=== PATIENT | male | born 1955 | race Two or more races ===

== ENCOUNTER 2020-05-08 19:18 | Emergency (ER) | payer MEDICARE, OTHER ==
[2020-05-08] MEDS ORDERED: Sodium Chloride 0.9% 10 ML Syringe FLUSH PRN ×2 (19:24→21:32)
[2020-05-08] MEDS ORDERED: Sodium Chloride 0.9% 2.5 ML Syringe FLUSH PRN ×2 (19:24→21:32)
[2020-05-08] MEDS ORDERED: Sodium Chloride 0.9% 1,000 ML IV ONE ×2 (19:26→21:30)
--- NOTE | 2020-05-08 19:28 | EDM.PDOC ---
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 About a week ago he began to get slightly confused a little ataxic and to have weakness. Since then he is developed progressive difficulty walking, some difficulty concentrating, some difficulty thinking clearly, and has developed over 4 days urinary incontinence. The patient has no pain or history of back problems. He has no other neurologic deficit. The patient has no nausea and vomiting. He has diminished appetite for several days and did not eat much today. He did force himself to eat a little bit. Patient one time had these symptoms before in the and he was related to heatstroke. Does remember getting overheated and dehydrated in [place] 7 days ago on has been trying to catch up. No sensory loss in the perineal area and no loss of bowel control but he does lose his urine. He can tell he has to go but then he goes before he can get to the bathroom. Review of systems: As per history of present illness and below otherwise all systems reviewed and negative. Past medical history: As per history of present illness and as reviewed below otherwise noncontributory. Surgical history: As per history of present illness and as reviewed below otherwise noncontributory. Social history: No reported history of drug or alcohol abuse. Family history: As per history of present illness and as reviewed below otherwise noncontributory. Physical exam: Constitutional - well developed, well-nourished and in no acute distress HEENT - normocephalic, no evidence of trauma - external nose and mouth normal - no mass in neck and no JVD - mucosae moist EYES - full EOM, PERRL, no icterus - no evidence of inflammation, injection, or drainage Respiratory - no respiratory distress, equal bilateral expansion, lungs clear to auscultation and no abnormal lung sounds Cardiovascular - Regular Rhythm with S1 and S2 appreciated and no murmur, gallop or rub. Peripheral pulses symmetrically normal in all four extremities GI - abdomen soft without distension or organomegaly - normal bowel sounds - no guard or rebound Musculoskeletal no gross deformity of long bones or joints - no tenderness, swelling or edema Neurologic - Alert and oriented times four - CN II-XII grossly intact - motor sensory and coordination symmetrically normal. Very brief neurologic exam is normal except for some mild tremor, ataxia. His speech is also a little slow and dysarthric. Speech content is normal. Psychiatric - appropriate mood and affect with normal thought content Hematologic - No petechiae or purpura - mucosa appropriate color and sclera not pale - normal nail bed color and refill Integument - no rash or evidence of trauma - normal turgor Diagnostics: [] Therapeutics: [] Impression: [] Plan: [] Definitive disposition and diagnosis as appropriate pending reevaluation and review of above. - Related Data Allergies Allergy/AdvReac Type Severity Reaction Status Date / Time No Known Allergies Allergy Verified 05/08/20 19:31 Home Meds: Home Meds . [No Known Home Meds] 05/08/20 [History] ED ROS GENERAL - Review of Systems Review Of Systems: Comprehensive ROS is negative, except as noted in HPI. ED EXAM, GENERAL - Physical Exam Exam: See Below Free Text/Narrative:: Exam as in the HPI EKG INTERPRETATION EKG Date: 05/08/20 Rhythm: Other (Sinus tachycardia) Rate (Beats/Min): 100 [employer]: Other (18) Course - Vital Signs Text/Narrative:: The patient's x-ray reveals a consolidated left lower lobe pneumonia. He is hesitant when asked if he has a cough. He does live in [place] and just traveled from [place]. For context we are in the midst of a COVID-19 crisis and pandemic although this county has virtually no prevalence. As of this patient's homebase being a high risk area and his travel we will test for COVID-19 and treat as community acquired pneumonia. Troponin I is +0.134. Lactate is positive at 2.2. BUN and creatinine are 38 and 1.8 without baseline. Liver functions are elevated. Patient's troponin I went up after hydration although lactate came down. Graft in the face of yearly physicals with normal exams he has acute liver failure acute kidney injury in the face of sepsis from a pneumonia in the lower lobe as well as an elevating troponin which could indicate myocardial injury. The patient is amazingly stable and stoic. I discussed this case with Dr. Alarcon and admitted the patient to [facility] by transfer Critical care time in review of the history examined the patient review of the findings and results and consultation as well as charting excluding any time for procedures billed rapidly was 47 minutes. Ggup-de-xcso time with the patient was 27 minutes. Last Recorded V/S: Last Vital Signs Temp 99.2 F 05/08/20 19:31 Pulse 94 05/08/20 22:43 Resp 22 H 05/08/20 22:43 BP 159/87 H 05/08/20 22:43 Pulse Ox 94 L 05/08/20 22:43 - Orders/Labs/Meds Orders: Active Orders 24 hr Category Date Time Status Communication Order [RC] STAT Care 05/08/20 19:46 Active EKG Documentation Completion [RC] AM Care 05/08/20 19:24 Active AMMONIA VENOUS [CHEM] Stat Lab 05/08/20 23:09 Ordered CULTURE BLOOD [BC] Stat Lab 05/08/20 20:20 Received CULTURE BLOOD [BC] Stat Lab 05/08/20 20:28 Received Sodium Chloride 0.9% [Saline Flush] Med 05/08/20 21:32 Active 10 ml FLUSH ASDIRECTED PRN Sodium Chloride 0.9% [Saline Flush] Med 05/08/20 21:32 Active 2.5 ml FLUSH ASDIRECTED PRN Saline Lock Insert [OM.PC] Stat Oth 05/08/20 19:24 Ordered Medication Orders Sodium Chloride (Saline Flush) 10 ml FLUSH ASDIRECTED PRN PRN Reason: Keep Vein Open Sodium Chloride (Saline Flush) 2.5 ml FLUSH ASDIRECTED PRN PRN Reason: Keep Vein Open Labs: Laboratory Tests 05/08/20 05/08/20 05/08/20 Range/Units 20:20 20:20 20:20 WBC 15.15 H (4.0-11.0) K/uL RBC 5.52 (4.50-5.90) M/uL Hgb 18.3 H (13.0-17.0) g/dL Hct 51.0 H (38.0-50.0) % MCV 92.4 (80.0-98.0) fL MCH 33.2 H (27.0-32.0) pg MCHC 35.9 (31.0-37.0) g/dL RDW Std Deviation 46.2 (28.0-62.0) fl RDW Coeff of Lynn 14 (11.0-15.0) % Plt Count 135 L (150-400) K/uL MPV 11.90 (7.40-12.00) fL Neut % (Auto) 83.8 H (48.0-80.0) % Lymph % (Auto) 10.0 L (16.0-40.0) % [place] % (Auto) 6.1 (0.0-15.0) % Eos % (Auto) 0.0 (0.0-7.0) % Baso % (Auto) 0.1 (0.0-1.5) % Neut # (Auto) 12.7 H (1.4-5.7) K/uL Lymph # (Auto) 1.5 (0.6-2.4) K/uL [place] # (Auto) 0.9 H (0.0-0.8) K/uL Eos # (Auto) 0.0 (0.0-0.7) K/uL Baso # (Auto) 0.0 (0.0-0.1) K/uL Nucleated RBC % 0.0 /100WBC Nucleated RBCs # 0 K/uL Lactate 2.2 H* (0.20-2.00) mmol/L Sodium 132 L (136-148) mmol/L Potassium 3.8 (3.5-5.1) mmol/L Chloride 94 L (98-107) mmol/L Carbon Dioxide 28.1 (21.0-32.0) mmol/L BUN 38 H (7.0-18.0) mg/dL Creatinine 1.8 H (0.8-1.3) mg/dL Est Cr Clr Drug Dosing 44.91 mL/min Estimated GFR (MDRD) 38.1 ml/min Glucose 128 H (74-106) mg/dL Calcium 8.6 (8.5-10.1) mg/dL Magnesium 2.5 H (1.8-2.4) mg/dL Total Bilirubin 1.3 H (0.2-1.0) mg/dL AST 390 H (15-37) IU/L ALT 304 H (14-63) IU/L Alkaline Phosphatase 101 (46-116) U/L Creatine Kinase 613 H (26-308) U/L Troponin I 0.134 H* (0.000-0.056) ng/mL Total Protein 7.6 (6.4-8.2) g/dL Albumin 3.0 L (3.4-5.0) g/dL Globulin 4.6 H (2.6-4.0) g/dL Albumin/Globulin Ratio 0.7 L (0.9-1.6) Urine Color Urine Appearance Urine pH (5.0-8.0) Ur Specific [place] (1.001-1.035) Urine Protein (NEGATIVE) mg/dL Urine Glucose (UA) (NEGATIVE) mg/dL Urine Ketones (NEGATIVE) mg/dL Urine Occult Blood (NEGATIVE) Urine Nitrite (NEGATIVE) Urine Bilirubin (NEGATIVE) Urine Urobilinogen (<2.0) EU/dL Ur Leukocyte Esterase (NEGATIVE) Urine RBC (0-2/HPF) Urine WBC (0-5/HPF) Ur Epithelial Cells (NONE-FEW) Amorphous Sediment (NEGATIVE) Urine Bacteria (NEGATIVE) Urine Mucus (NONE-MOD) Urine Opiates Screen (NEGATIVE) Ur Oxycodone Screen (NEGATIVE) Urine Methadone Screen (NEGATIVE) Ur Barbiturates Screen (NEGATIVE) Ur Phencyclidine Scrn (NEGATIVE) Ur Amphetamine Screen (NEGATIVE) U Methamphetamines Scrn (NEGATIVE) U Benzodiazepines Scrn (NEGATIVE) U Cocaine Metab Screen (NEGATIVE) U Marijuana (THC) Screen (NEGATIVE) Ethyl Alcohol < 3.0 mg/dL SARS Virus RNA (PCR) (NEGATIVE) 05/08/20 05/08/20 05/08/20 Range/Units 21:10 21:45 21:45 WBC (4.0-11.0) K/uL RBC (4.50-5.90) M/uL Hgb (13.0-17.0) g/dL Hct (38.0-50.0) % MCV (80.0-98.0) fL MCH (27.0-32.0) pg MCHC (31.0-37.0) g/dL RDW Std Deviation (28.0-62.0) fl RDW Coeff of Lynn (11.0-15.0) % Plt Count (150-400) K/uL MPV (7.40-12.00) fL Neut % (Auto) (48.0-80.0) % Lymph % (Auto) (16.0-40.0) % [place] % (Auto) (0.0-15.0) % Eos % (Auto) (0.0-7.0) % Baso % (Auto) (0.0-1.5) % Neut # (Auto) (1.4-5.7) K/uL Lymph # (Auto) (0.6-2.4) K/uL [place] # (Auto) (0.0-0.8) K/uL Eos # (Auto) (0.0-0.7) K/uL Baso # (Auto) (0.0-0.1) K/uL Nucleated RBC % /100WBC Nucleated RBCs # K/uL Lactate (0.20-2.00) mmol/L Sodium (136-148) mmol/L Potassium (3.5-5.1) mmol/L Chloride (98-107) mmol/L Carbon Dioxide (21.0-32.0) mmol/L BUN (7.0-18.0) mg/dL Creatinine (0.8-1.3) mg/dL Est Cr Clr Drug Dosing mL/min Estimated GFR (MDRD) ml/min Glucose (74-106) mg/dL Calcium (8.5-10.1) mg/dL Magnesium (1.8-2.4) mg/dL Total Bilirubin (0.2-1.0) mg/dL AST (15-37) IU/L ALT (14-63) IU/L Alkaline Phosphatase (46-116) U/L Creatine Kinase (26-308) U/L Troponin I (0.000-0.056) ng/mL Total Protein (6.4-8.2) g/dL Albumin (3.4-5.0) g/dL Globulin (2.6-4.0) g/dL Albumin/Globulin Ratio (0.9-1.6) Urine Color DARK YELLOW Urine Appearance CLEAR Urine pH 6.0 (5.0-8.0) Ur Specific [place] >= 1.030 (1.001-1.035) Urine Protein 100 H (NEGATIVE) mg/dL Urine Glucose (UA) NEGATIVE (NEGATIVE) mg/dL Urine Ketones NEGATIVE (NEGATIVE) mg/dL Urine Occult Blood LARGE H (NEGATIVE) Urine Nitrite NEGATIVE (NEGATIVE) Urine Bilirubin NEGATIVE (NEGATIVE) Urine Urobilinogen 0.2 (<2.0) EU/dL Ur Leukocyte Esterase NEGATIVE (NEGATIVE) Urine RBC 0-2 (0-2/HPF) Urine WBC 0-1 (0-5/HPF) Ur Epithelial Cells RARE (NONE-FEW) Amorphous Sediment LIGHT (NEGATIVE) Urine Bacteria 2+ H (NEGATIVE) Urine Mucus LIGHT (NONE-MOD) Urine Opiates Screen NEGATIVE (NEGATIVE) Ur Oxycodone Screen NEGATIVE (NEGATIVE) Urine Methadone Screen NEGATIVE (NEGATIVE) Ur Barbiturates Screen NEGATIVE (NEGATIVE) Ur Phencyclidine Scrn NEGATIVE (NEGATIVE) Ur Amphetamine Screen NEGATIVE (NEGATIVE) U Methamphetamines Scrn NEGATIVE (NEGATIVE) U Benzodiazepines Scrn NEGATIVE (NEGATIVE) U Cocaine Metab Screen NEGATIVE (NEGATIVE) U Marijuana (THC) Screen NEGATIVE (NEGATIVE) Ethyl Alcohol mg/dL SARS Virus RNA (PCR) NEGATIVE (NEGATIVE) 05/08/20 05/08/20 Range/Units 22:55 22:55 WBC (4.0-11.0) K/uL RBC (4.50-5.90) M/uL Hgb (13.0-17.0) g/dL Hct (38.0-50.0) % MCV (80.0-98.0) fL MCH (27.0-32.0) pg MCHC (31.0-37.0) g/dL RDW Std Deviation (28.0-62.0) fl RDW Coeff of Lynn (11.0-15.0) % Plt Count (150-400) K/uL MPV (7.40-12.00) fL Neut % (Auto) (48.0-80.0) % Lymph % (Auto) (16.0-40.0) % [place] % (Auto) (0.0-15.0) % Eos % (Auto) (0.0-7.0) % Baso % (Auto) (0.0-1.5) % Neut # (Auto) (1.4-5.7) K/uL Lymph # (Auto) (0.6-2.4) K/uL [place] # (Auto) (0.0-0.8) K/uL Eos # (Auto) (0.0-0.7) K/uL Baso # (Auto) (0.0-0.1) K/uL Nucleated RBC % /100WBC Nucleated RBCs # K/uL Lactate 2.0 (0.20-2.00) mmol/L Sodium (136-148) mmol/L Potassium (3.5-5.1) mmol/L Chloride (98-107) mmol/L Carbon Dioxide (21.0-32.0) mmol/L BUN (7.0-18.0) mg/dL Creatinine (0.8-1.3) mg/dL Est Cr Clr Drug Dosing mL/min Estimated GFR (MDRD) ml/min Glucose (74-106) mg/dL Calcium (8.5-10.1) mg/dL Magnesium (1.8-2.4) mg/dL Total Bilirubin (0.2-1.0) mg/dL AST (15-37) IU/L ALT (14-63) IU/L Alkaline Phosphatase (46-116) U/L Creatine Kinase (26-308) U/L Troponin I 0.142 H* (0.000-0.056) ng/mL Total Protein (6.4-8.2) g/dL Albumin (3.4-5.0) g/dL Globulin (2.6-4.0) g/dL Albumin/Globulin Ratio (0.9-1.6) Urine Color Urine Appearance Urine pH (5.0-8.0) Ur Specific [place] (1.001-1.035) Urine Protein (NEGATIVE) mg/dL Urine Glucose (UA) (NEGATIVE) mg/dL Urine Ketones (NEGATIVE) mg/dL Urine Occult Blood (NEGATIVE) Urine Nitrite (NEGATIVE) Urine Bilirubin (NEGATIVE) Urine Urobilinogen (<2.0) EU/dL Ur Leukocyte Esterase (NEGATIVE) Urine RBC (0-2/HPF) Urine WBC (0-5/HPF) Ur Epithelial Cells (NONE-FEW) Amorphous Sediment (NEGATIVE) Urine Bacteria (NEGATIVE) Urine Mucus (NONE-MOD) Urine Opiates Screen (NEGATIVE) Ur Oxycodone Screen (NEGATIVE) Urine Methadone Screen (NEGATIVE) Ur Barbiturates Screen (NEGATIVE) Ur Phencyclidine Scrn (NEGATIVE) Ur Amphetamine Screen (NEGATIVE) U Methamphetamines Scrn (NEGATIVE) U Benzodiazepines Scrn (NEGATIVE) U Cocaine Metab Screen (NEGATIVE) U Marijuana (THC) Screen (NEGATIVE) Ethyl Alcohol mg/dL SARS Virus RNA (PCR) (NEGATIVE) Meds: Medications Generic Name Dose Route Start Last Admin Trade Name Freq PRN Reason Stop Dose Admin Sodium Chloride 10 ml 05/08/20 21:32 Saline Flush FLUSH ASDIRECTED PRN Keep Vein Open Sodium Chloride 2.5 ml 05/08/20 21:32 Saline Flush FLUSH ASDIRECTED PRN Keep Vein Open Discontinued Medications Generic Name Dose Route Start Last Admin Trade Name Freq PRN Reason Stop Dose Admin Aspirin 324 mg 05/08/20 21:55 05/08/20 22:40 Aspirin PO 05/08/20 21:56 324 mg ONETIME ONE Administration Sodium Chloride 1,000 mls @ 999 mls/hr 05/08/20 19:26 05/08/20 19:38 Normal Saline IV 05/08/20 20:26 999 mls/hr .BOLUS ONE Administration Ceftriaxone Sodium/Dextrose 1 50 mls @ 100 mls/hr 05/08/20 19:46 05/08/20 20:09 gm/ Premix IV 05/08/20 20:15 100 mls/hr ONETIME ONE Administration Sodium Chloride 1,000 mls @ 999 mls/hr 05/08/20 21:30 05/08/20 21:35 Normal Saline IV 05/08/20 22:30 999 mls/hr .BOLUS ONE Administration Sodium Chloride 10 ml 05/08/20 19:24 Saline Flush FLUSH ASDIRECTED PRN Keep Vein Open Sodium Chloride 2.5 ml 05/08/20 19:24 Saline Flush FLUSH ASDIRECTED PRN Keep Vein Open Departure - Departure Time of Disposition: 00:15 Disposition: DC/Tfer to Acute Hospital 02 Condition: Fair Clinical Impression: Left lower lobe pneumonia, Elevated troponin I level, Acute kidney injury, Elevated liver enzymes, Urinary incontinence - Discharge Information Referrals: PCP,Not In Area [Primary Care Provider] - Forms: Interfacility Transfer EMTALA Sepsis Event Note (ED) - Focused Exam Vital Signs: Vital Signs Temp Pulse Resp BP Pulse Ox 05/08/20 22:43 94 22 H 159/87 H 94 L 05/08/20 20:11 102 H 24 H 148/90 H 95 05/08/20 19:31 99.2 F 104 H 26 H 153/88 H 91 L - My Orders Last 24 Hours: My Active Orders 05/08/20 19:24 EKG Documentation Completion [RC] AM Saline Lock Insert [OM.PC] Stat 05/08/20 19:46 Communication Order [RC] STAT 05/08/20 20:20 CULTURE BLOOD [BC] Stat 05/08/20 20:28 CULTURE BLOOD [BC] Stat 05/08/20 21:32 Sodium Chloride 0.9% [Saline Flush] 10 ml FLUSH ASDIRECTED PRN Sodium Chloride 0.9% [Saline Flush] 2.5 ml FLUSH ASDIRECTED PRN 05/08/20 23:09 AMMONIA VENOUS [CHEM] Stat - Assessment/Plan Last 24 Hours: My Active Orders 05/08/20 19:24 EKG Documentation Completion [RC] AM Saline Lock Insert [OM.PC] Stat 05/08/20 19:46 Communication Order [RC] STAT 05/08/20 20:20 CULTURE BLOOD [BC] Stat 05/08/20 20:28 CULTURE BLOOD [BC] Stat 05/08/20 21:32 Sodium Chloride 0.9% [Saline Flush] 10 ml FLUSH ASDIRECTED PRN Sodium Chloride 0.9% [Saline Flush] 2.5 ml FLUSH ASDIRECTED PRN 05/08/20 23:09 AMMONIA VENOUS [CHEM] Stat
[2020-05-08] MEDS ORDERED: cefTRIAXone 1 GM in Premix Bag 1 BAG IV ONE (19:46)
--- NOTE | 2020-05-08 19:57 | CR ---
Chest: Portable view of the chest was obtained. Comparison: No previous chest imaging is available. Increased density within the left base is seen. Lungs otherwise are clear. Heart size and mediastinum are normal. Bony structures are grossly intact. Impression: 1. Increased density within the left base most likely representing an area of consolidating pneumonia. 2. Follow-up chest x-ray recommended after clinical therapy is complete to make sure findings resolve. Diagnostic code #5 This report was dictated in MDT
[2020-05-08 20:54] LABS: BLOOD UREA NITROGEN,BUN 38 mg/dL (7.0-18.0); CARBON DIOXIDE,CO2 28.1 mmol/L (21.0-32.0); CHLORIDE,CL 94 mmol/L (98-107); GLUCOSE RANDOM 128 mg/dL (74-106); POTASSIUM,K 3.8 mmol/L (3.5-5.1); SODIUM,NA 132 mmol/L (136-148)
[2020-05-08] MEDS ORDERED: Aspirin 81 MG Tab.Chew PO ONE (21:55)
--- NOTE | 2020-05-08 22:54 | CT ---
INDICATION: DIZZY/WEAKNESS X [address] HEAD WITHOUT CONTRAST TECHNIQUE: Multiple axial CT images were performed through the head without intravenous contrast administration. COMPARISON: No previous studies are currently available for comparison. FINDINGS: No acute intracranial hemorrhage is identified. No extra-axial collections are evident and there is no mass effect or midline shift. There is mild diffuse age-related brain atrophy. Ventricular size and configuration are within normal limits for the patient`s age. Juarez-white differentiation is within normal limits. There is very mild patchy hypodensity in the periventricular white matter, a nonspecific finding which most likely reflects chronic small vessel ischemic change. Osseous structures are within normal limits and no fractures are seen. Included portions of the paranasal sinuses and mastoid air cells are normally aerated aside from small polyps or retention cysts in the right frontal sinus. IMPRESSION: 1. No acute intracranial abnormality identified. 2. Mild age-related brain atrophy and white matter hypodensity consistent with chronic small vessel ischemic change. LIDYA STAHL MD [employer] [employer] Dictated by: Sudhakar Stahl MD @ 05/08/2020 22:53:11 (Electronically Signed)
== END 2020-05-09 00:45 ==
LOC: MW.ED 19:18
DX: J18.9 Pneumonia, unspecified organism (principal); R79.89 Other specified abnormal findings of blood chemistry; R74.8 Abnormal levels of other serum enzymes; N17.9 Acute kidney failure, unspecified; R32 Unspecified urinary incontinence; R00.0 Tachycardia, unspecified; Z20.828 Contact with and (suspected) exposure to other viral communicable diseases
CPT/HCPCS: 36415; 70450; 71045; 80053; 80305; 80307; 81001; 82140; 82550; 83605; 83735; 84484; 85025; 87040; 93005; 96361; 96365; 99285; A9270; J0696; J7030; U0002